=== PATIENT | female | born 1995 | race Caucasian/White ===

== ENCOUNTER 2016-10-07 13:10 | Emergency (ER) | payer OTHER ==
[2016-10-07] MEDS ORDERED: METRONIDAZOLE 500 MG TAB ONE (16:40)
== END 2016-10-07 16:47 | disposition home or self-care (01) ==
LOC: ER 13:10
CPT/HCPCS: 36415; 76817; 80053; 81001; 83690; 84702; 85025; 86901; 87088; 87491; 87591; 87800